=== PATIENT | male | born 1950 | race Caucasian/White ===

== ENCOUNTER → 2021-08-20 13:57 | Outpatient (CLI) | payer MEDICARE, SELFPAY ==
[2021-08-20 14:20] LABS: Bacteria 0 SEEN /hpf (None Seen); Mucous, Urine 0 SEEN /hpf (<or=2+); Red Blood Cells-Urine 0 SEEN /hpf (0-5); Squamous Epithelial Cells - UA 0 SEEN /hpf (0-5); White Blood Cells 0 SEEN /hpf (0-5)
[2021-08-20 14:24] LABS: Absolute Lymphocyte Count 1.61 X10^3/uL (0.83-4.51); Absolute Neutrophil Count 4.1 X10^3/uL (2.0-7.7); Basophil# 0.04 X10^3/uL; Basophil% 0.6 % (0-1); Color, Urine Yellow (Yellow); Eosinophil# 0.34 X10^3/uL; Eosinophils% 5.1 % (0-5); Glucose, Dipstick Normal (Normal); Hematocrit 41.3 % (40-54); Hemoglobin 13.5 g/dL (13.0-16.5); Ketone-Dipstick Negative (Negative); Leukocyte Esterase-Dipstick Negative /ul (Negative); Lymphocyte # 1.61 X10^3/ul (0.83-4.51); Lymphocyte % 24.1 % (19-41); Mean Corp Hgb Conc 32.7 g/dL (32-36); Mean Corpuscular Volume 88.6 fL (80-94); Mean Platelet Vol. 9.2 fl (6.2-12.0); Monocyte# 0.53 X10^3/uL; Monocyte% 7.9 % (0-10); NRBC Flagged by Analyzer 0 % (0-5); Neutrophil # 4.14 X10^3/uL (2.7-7.7); Nitrite-Dipstick Negative (Negative); Occult Blood-Urine Negative /ul (Negative); Platelet Count 374 K/mm3 (150-450); Protein-Dipstick Negative (Negative); RBC Distribution Width CV 12.7 % (11.6-14.6); RBC Distribution Width SD 41.6 fl (35.1-43.9); Red Blood Count 4.66 M/mm3 (4.6-6.2); Urine Bilirubin Dipstick Negative (Negative); Urine Clarity Clear (Clear); Urine Urobilinogen Normal (Normal); White Blood Count 6.7 K/mm3 (4.4-11.0)
[2021-08-20 14:37] LABS: ALB/GLOB Ratio 0.9 RATIO (0.9-2.4); AST(SGOT) 15 U/L (15-37); Alanine Aminotransfer ALT/SGPT 21 U/L (16-61); Albumin, Serum 3.6 g/dL (3.2-5.0); Alkaline Phosphatase 95 U/L (45-117); Anion Gap 4 (5-15); BUN 17 mg/dL (7-18); Calcium,Total 9.3 mg/dL (8.5-10.1); Chloride 108 mmol/L (98-107); Cholesterol 202 mg/dL (200); Creatinine, Serum 0.85 mg/dL (0.70-1.30); EST Glomerular Filtration Rate 94 mL/min (>60); Est Glom Filt Rate - Afr Amer 114 mL/min (>60); Ferritin 158 ng/mL (26-388); Glucose 100 mg/dL (74-106); High Density Lipoprotein 68 mg/dL; Iron 53 ug/dL (65-175); PSA,Total - Annual Screen 1.96 ng/mL (0.00-4.00); Protein, Total 7.6 g/dL (6.4-8.2); Sodium Level 141 mmol/L (136-145); Triglycerides 63 mg/dL; Very Low Density Lipoprotein 13 mg/dL (5-40)
[2021-08-20 14:39] LABS: Vitamin B12 232 pg/mL (211-911); Vitamin D,25 Hydroxy 14.8 ng/mL
[2021-08-20 14:44] LABS: Hemoglobin A1c 5.3 % (3.8-5.6)
== END ==
PROVIDERS: Visit Provider Nurse Practitioner Family
DX: R14.0 Abdominal distension (gaseous) (principal); R15.2 Fecal urgency; Z12.5 Encounter for screening for malignant neoplasm of prostate
CPT/HCPCS: 80053; 80061; 81001; 82274; 82306; 82607; 82728; 83036; 83540; 84153; 85025; 87177; 87209; 87493; G0103